=== PATIENT | female | born 1935 | race African-American/Black ===

== ENCOUNTER 2021-04-26 09:19 | Inpatient (IN) | payer MEDICARE, MEDICAID ==
[~2021-04-26] VITALS: Ht 170.2 cm; Wt 100.9 kg
[~2021-04-26 09:19] MED LIST: UNK HTN MEDS
[2021-04-26 11:25] LABS: BASOPHILS % 1.2 % (0.0-2.0); EOSINOPHILS % 1.8 % (0.0-5.0); HEMATOCRIT. 41.3 % (36.0-48.0); HEMOGLOBIN. 13.7 g/dL (12.0-16.0); LYMPHOCYTES % 23.6 % (20.0-50.0); MEAN CORPUSCULAR VOLUME 96.2 fL (81.0-99.0); MEAN PLATELET VOLUME 10.5 fl (7.4-10.4); MONOCYTES % 11.5 % (2.0-8.0); NEUTROPHILS % 61.9 % (40.0-76.0); PLATELET 128 x1000/uL (130-400); RED BLOOD CELL COUNT 4.29 mill/uL (4.2-5.4); RED CELL DISTRIBUTION WIDTH 13.8 % (11.6-14.6)
[2021-04-26 11:27] LABS: CHLORIDE 106 mEq/L (98-107)
[2021-04-26 17:00] VITALS: BP 147/89
[2021-04-26 18:17] VITALS: BP 142/70
[2021-04-26] MEDS ORDERED: ACETAMINOPHEN 325MG TABLET PO PRN (19:30)
[2021-04-26] MEDS ORDERED: CLONIDINE 0.1MG TABLET PO PRN (19:30)
[2021-04-26] MEDS ORDERED: MORPHINE SULFATE 2 MG/ML CPJ (NOT FOR IM USE) IV PRN (19:30)
[2021-04-26] MEDS ORDERED: NALOXONE HCL 0.4MG/ML VIAL IV PRN (19:45)
[2021-04-26 20:00] VITALS: BP 157/81
[2021-04-26] MEDS: ATORVASTATIN CALCIUM 40MG TABLET PO SCH (21:26)
[2021-04-26] MEDS: METOPROLOL TARTRATE 50MG TABLET PO SCH (21:27)
[2021-04-27] VITALS: BP 130/70
[2021-04-27 04:00] VITALS: BP 133/69
[2021-04-27 05:21] LABS: INR 1.2; PROTHROMBIN TIME 12.4 sec (9.6-11.0)
[2021-04-27 05:27] LABS: CHLORIDE 105 mEq/L (98-107)
[2021-04-27 06:11] LABS: EOSINOPHILS % 3.6 % (0.0-5.0); HEMATOCRIT. 41.7 % (36.0-48.0); HEMOGLOBIN. 13.8 g/dL (12.0-16.0); LYMPHOCYTES % 25.2 % (20.0-50.0); MEAN CORPUSCULAR HEMOGLOBIN 32.5 pg (28.0-32.0); MEAN PLATELET VOLUME 11.1 fl (7.4-10.4); NEUTROPHILS % 57.2 % (40.0-76.0); PLATELET 118 x1000/uL (130-400); RED BLOOD CELL COUNT 4.26 mill/uL (4.2-5.4); RED CELL DISTRIBUTION WIDTH 13.5 % (11.6-14.6)
[2021-04-27 08:00] VITALS: BP 138/78
[2021-04-27] MEDS: METOPROLOL TARTRATE 50MG TABLET PO SCH ×2 (09:12→20:44)
[2021-04-27] MEDS: ASPIRIN 81MG TABLET PO SCH (09:13)
[2021-04-27] MEDS: ENOXAPARIN 30MG/0.3ML SYR SUBCUT SCH ×2 (11:51→20:45)
[2021-04-27 12:00] VITALS: BP 150/85
[2021-04-27 12:27] LABS: HEPATITIS B SURFACE ANTIGEN NEGATIVE
[2021-04-27] MEDS ORDERED: LACTULOSE 20G/30ML UDC PO SCH (14:00)
[2021-04-27 16:00] VITALS: BP_SYST 132; BP_SYST 154; BP_DIAS 68; BP_DIAS 81
[2021-04-27 20:00] VITALS: BP 152/81
[2021-04-27] MEDS: ATORVASTATIN CALCIUM 40MG TABLET PO SCH (20:44)
[2021-04-28] VITALS: BP 146/60
[2021-04-28 04:00] VITALS: BP 148/67
[2021-04-28 07:08] LABS: BASOPHILS % 1.1 % (0.0-2.0); EOSINOPHILS % 4.3 % (0.0-5.0); HEMATOCRIT. 40.2 % (36.0-48.0); HEMOGLOBIN. 13.3 g/dL (12.0-16.0); MEAN CORPUSCULAR HEMOGLOBIN 32.3 pg (28.0-32.0); MEAN CORPUSCULAR VOLUME 97.1 fL (81.0-99.0); MEAN PLATELET VOLUME 10.7 fl (7.4-10.4); MONOCYTES % 13.3 % (2.0-8.0); NEUTROPHILS % 53.3 % (40.0-76.0); PLATELET 129 x1000/uL (130-400); RED BLOOD CELL COUNT 4.13 mill/uL (4.2-5.4); RED CELL DISTRIBUTION WIDTH 13.9 % (11.6-14.6)
[2021-04-28 07:15] LABS: CHLORIDE 106 mEq/L (98-107)
[2021-04-28 09:00] VITALS: BP 142/73
[2021-04-28] MEDS: ENOXAPARIN 30MG/0.3ML SYR SUBCUT SCH ×2 (09:45→22:13)
[2021-04-28] MEDS ORDERED: POTASSIUM CHLORIDE 20MEQ/PACKET PO NR (10:15)
[2021-04-28] MEDS ORDERED: MELO-106 PO (11:07)
[2021-04-28] MEDS ORDERED: OMEP20CA14 PO (11:07)
[2021-04-28] MEDS ORDERED: MEMA5TAB42 PO (11:07)
[2021-04-28] MEDS ORDERED: ATOR-2 MT (11:07)
[2021-04-28] MEDS ORDERED: NIFE-33 PO (11:07)
[2021-04-28] MEDS ORDERED: POTA-79 PO (11:07)
[2021-04-28] MEDS ORDERED: HYDR25TA PO (11:07)
[2021-04-28 12:00] VITALS: BP 140/72
[2021-04-28] MEDS: METOPROLOL TARTRATE 50MG TABLET PO SCH ×2 (12:34→21:57)
[2021-04-28] MEDS: ASPIRIN 81MG TABLET PO SCH (12:34)
[2021-04-28 16:00] VITALS: BP 143/67
[2021-04-28 19:09] LABS: CLARITY URINE CLEAR (CLEAR); COLOR URINE DARK YELLOW (YELLOW); KETONES URINE NEGATIVE (NEGATIVE); LEUKOCYTE ESTERASE URINE 1+ (NEGATIVE); NITRITE URINE NEGATIVE (NEGATIVE); OCCULT BLOOD URINE NEGATIVE (NEGATIVE); PH URINE 5.5 (4.5-8.0); PROTEIN URINE TRACE (NEGATIVE); SPECIFIC GRAVITY URINE 1.024 (1.005-1.030)
[2021-04-28 20:00] VITALS: BP 135/63
[2021-04-28] MEDS: ATORVASTATIN CALCIUM 40MG TABLET PO SCH (21:57)
[2021-04-29] VITALS (17 sets, daily range): BP systolic 112–198; BP diastolic 58–113
[2021-04-29] MEDS: DEXT 5%/0.45% NACL 1000ML 1,000 ML IV SCH ×2 (06:16→21:49)
[2021-04-29 07:40] LABS: EOSINOPHILS % 4.6 % (0.0-5.0); HEMATOCRIT. 40.5 % (36.0-48.0); HEMOGLOBIN. 13.5 g/dL (12.0-16.0); LYMPHOCYTES % 29.2 % (20.0-50.0); MEAN CORPUSCULAR HEMOGLOBIN 32.7 pg (28.0-32.0); MEAN CORPUSCULAR VOLUME 97.8 fL (81.0-99.0); MONOCYTES % 14.5 % (2.0-8.0); NEUTROPHILS % 50.7 % (40.0-76.0); PLATELET 122 x1000/uL (130-400); RED BLOOD CELL COUNT 4.14 mill/uL (4.2-5.4); RED CELL DISTRIBUTION WIDTH 14.2 % (11.6-14.6)
[2021-04-29] MEDS: METOPROLOL TARTRATE 50MG TABLET PO SCH ×2 (09:21→21:00)
[2021-04-29] MEDS: ASPIRIN 81MG TABLET PO SCH (09:21)
[2021-04-29] MEDS: PIPERACILLIN/TAZOBACTAM 3.375G in DEXT 5% WATER 50ML IV SCH ×2 (09:21→13:57)
[2021-04-29] MEDS ORDERED: LIDOCAINE HCL 1% 20ML VIAL (Pyxis) INJ ONE (14:47)
[2021-04-29] MEDS ORDERED: POLYMYXIN B SULFATE 500000 UNITS/VIAL ONE (14:48)
[2021-04-29] MEDS ORDERED: BUPIVACAINE HCL/PF 0.5% (5MG/ML) 10ML ONE (14:48)
[2021-04-29] MEDS ORDERED: SKIN ADHESIVE 0.7 GM EA TOP ONE (14:48)
[2021-04-29] MEDS ORDERED: ROCURONIUM BROMIDE 10MG/ML VIAL 5ML IV ONE (18:17)
[2021-04-29] MEDS ORDERED: FENTANYL CITRATE/PF 50MCG/ML 2ML VIAL ONE (18:17)
[2021-04-29] MEDS ORDERED: NEOSTIGMINE METHYLSULFATE 1MG/ML 10 ML VIAL ONE (18:17)
[2021-04-29] MEDS ORDERED: GLYCOPYRROLATE 0.2 MG/ML 2ML VIAL ONE (18:18)
[2021-04-29] MEDS ORDERED: MIDAZOLAM HCL 2 MG/2 ML VIAL ONE ×2 (18:18→21:04)
[2021-04-29] MEDS ORDERED: PROPOFOL 200MG/20ML VIAL IV ONE (18:18)
[2021-04-29] MEDS ORDERED: HYDROMORPHONE HCL/PF 2MG/ML CPJ IV PRN (18:30)
[2021-04-29] MEDS ORDERED: ONDANSETRON HCL 4MG/2ML INJ IV PRN (18:30)
[2021-04-29] MEDS ORDERED: LABETALOL 5MG/ML SYR 20 MG/4 ML SYRINGE IV PRN (18:30)
[2021-04-29] MEDS ORDERED: MEPERIDINE HCL/PF 25MG/ML CPJ IV PRN (18:30)
[2021-04-29] MEDS ORDERED: DEXAMETHASONE 4MG/ML 1ML VIAL ONE (18:39)
[2021-04-29] MEDS ORDERED: HYDROMORPHONE HCL/PF 2MG/ML (OR) ONE (19:46)
[2021-04-29] MEDS: ATORVASTATIN CALCIUM 40MG TABLET PO SCH (21:00)
[2021-04-29] MEDS ORDERED: MIDAZOLAM 100MG/100ML PMX 100 ML IV PRN (21:30)
[2021-04-29] MEDS ORDERED: PROPOFOL 10MG/ML 100ML 100 ML IV PRN (21:30)
[2021-04-29] MEDS ORDERED: FENTANYL CITRATE/PF 2,500 MCG in SODIUM CHLORIDE 0.9% 200 ML IV PRN (21:30)
[2021-04-29] MEDS: PROPOFOL 10MG/ML 100ML 100 ML IV PRN (21:48)
[2021-04-29] MEDS ORDERED: MIDAZOLAM HCL 100 MG in SODIUM CHLORIDE 0.9% 100 ML IV PRN (22:00)
[2021-04-29 22:01] LABS: BG BASE EXCESS 0.8 mmol/L (-2.0-2.0); BG CARBOXYHEMOGLOBIN 0.1 % (0.5-1.5); BG DEOXYHEMOGLOBIN 0.2 % (0.0-5.0); BG FRACTION INSPIRED OXYGEN 100; BG HCO3 ACT 23.8 mmol/L (22.0-26.0); BG METHEMOGLOBIN 0.3 % (0.0-1.5); BG OXYGEN SATURATION 99.8 % (92.0-98.5); BG OXYHEMOGLOBIN 99.4 % (94.0-97.0); BG PCO2 33.3 mmHg (35.0-45.0); BG PH 7.472 (7.350-7.450); BG PO2 376.6 mmHg (75.0-100.0); BG SAMPLE SITE LEFT RADIAL; BG TOTAL HEMOGLOBIN 13.9 g/dL (12.0-18.0); BG VENT MODE VENT - AC
[2021-04-29 23:11] LABS: HEMATOCRIT 41.4 % (36.0-48.0); HEMOGLOBIN 13.8 g/dL (12.0-16.0)
[2021-04-30] VITALS (70 sets, daily range): BP systolic 103–181; BP diastolic 55–126
[2021-04-30] MEDS: LACTULOSE 20G/30ML UDC PO SCH ×5 (01:11→22:18)
[2021-04-30] MEDS: PIPERACILLIN/TAZOBACTAM 3.375G in DEXT 5% WATER 50ML IV SCH ×4 (01:12→22:16)
[2021-04-30] MEDS: ATORVASTATIN CALCIUM 40MG TABLET PO SCH ×2 (01:13→21:10)
[2021-04-30] MEDS: METOPROLOL TARTRATE 50MG TABLET PO SCH ×3 (01:13→21:10)
[2021-04-30] MEDS: PROPOFOL 10MG/ML 100ML 100 ML IV PRN (03:03)
[2021-04-30 06:10] LABS: CHLORIDE 107 mEq/L (98-107)
[2021-04-30 06:16] LABS: BASOPHILS % 0.2 % (0.0-2.0); EOSINOPHILS % 0.1 % (0.0-5.0); HEMATOCRIT. 39.3 % (36.0-48.0); HEMOGLOBIN. 13.3 g/dL (12.0-16.0); LYMPHOCYTES % 9.6 % (20.0-50.0); MEAN CORPUSCULAR HEMOGLOBIN 32.5 pg (28.0-32.0); MEAN CORPUSCULAR VOLUME 96.1 fL (81.0-99.0); MEAN PLATELET VOLUME 10.3 fl (7.4-10.4); MONOCYTES % 5.8 % (2.0-8.0); NEUTROPHILS % 84.3 % (40.0-76.0); PLATELET 149 x1000/uL (130-400); RED BLOOD CELL COUNT 4.09 mill/uL (4.2-5.4); RED CELL DISTRIBUTION WIDTH 13.8 % (11.6-14.6)
[2021-04-30] MEDS: ASPIRIN 81MG TABLET PO SCH (08:53)
[2021-04-30] MEDS: DEXT 5%/0.45% NACL 1000ML 1,000 ML IV SCH ×2 (08:54→22:20)
[2021-04-30 15:23] LABS: BG BASE EXCESS 0.2 mmol/L (-2.0-2.0); BG CARBOXYHEMOGLOBIN 0.1 % (0.5-1.5); BG FRACTION INSPIRED OXYGEN 40; BG HCO3 ACT 23.5 mmol/L (22.0-26.0); BG METHEMOGLOBIN 0.1 % (0.0-1.5); BG OXYHEMOGLOBIN 97.8 % (94.0-97.0); BG PCO2 33.9 mmHg (35.0-45.0); BG PH 7.458 (7.350-7.450); BG PO2 110.1 mmHg (75.0-100.0); BG SAMPLE SITE RIGHT RADIAL; BG TOTAL HEMOGLOBIN 14.3 g/dL (12.0-18.0); BG TOTAL RESPIRATORY RATE 23 b/min; BG VENT MODE VENT - CPAP
[2021-04-30] MEDS ORDERED: DEXTROSE 50% WATER 50ML SYRINGE IV PRN ×2 (17:00)
[2021-04-30] MEDS: BLOOD SUGAR DIAGNOSTIC STRIP TEST SCH ×2 (17:19→21:11)
[2021-04-30] MEDS: INSULIN LISPRO 100 UNITS/ML SUBCUT SCH ×2 (18:56→21:10)
[2021-04-30] MEDS: RIFAXIMIN 550 MG TABLET PO SCH (21:10)
[2021-05-01] VITALS (30 sets, daily range): BP systolic 114–163; BP diastolic 51–91
[2021-05-01] MEDS: MORPHINE SULFATE 2 MG/ML CPJ (NOT FOR IM USE) IV PRN (00:38)
[2021-05-01] MEDS: PIPERACILLIN/TAZOBACTAM 3.375G in DEXT 5% WATER 50ML IV SCH ×3 (06:11→22:59)
[2021-05-01 06:18] LABS: BASOPHILS % 0.3 % (0.0-2.0); HEMATOCRIT. 41.1 % (36.0-48.0); HEMOGLOBIN. 13.3 g/dL (12.0-16.0); LYMPHOCYTES % 10.6 % (20.0-50.0); MEAN CORPUSCULAR HEMOGLOBIN 31.6 pg (28.0-32.0); MEAN CORPUSCULAR VOLUME 97.6 fL (81.0-99.0); MEAN PLATELET VOLUME 10.3 fl (7.4-10.4); NEUTROPHILS % 77.1 % (40.0-76.0); PLATELET 194 x1000/uL (130-400); RED CELL DISTRIBUTION WIDTH 14.4 % (11.6-14.6)
[2021-05-01 06:23] LABS: CHLORIDE 106 mEq/L (98-107)
[2021-05-01] MEDS: BLOOD SUGAR DIAGNOSTIC STRIP TEST SCH ×4 (08:09→21:46)
[2021-05-01] MEDS: RIFAXIMIN 550 MG TABLET PO SCH ×2 (08:52→21:00)
[2021-05-01] MEDS: ASPIRIN 81MG TABLET PO SCH (09:11)
[2021-05-01] MEDS: METOPROLOL TARTRATE 50MG TABLET PO SCH ×2 (09:11→21:00)
[2021-05-01] MEDS: INSULIN LISPRO 100 UNITS/ML SUBCUT SCH ×4 (09:23→21:54)
[2021-05-01] MEDS ORDERED: MORPHINE SULFATE 4 MG/ML CPJ (NOT FOR IM USE) IV PRN (09:45)
[2021-05-01] MEDS: PANTOPRAZOLE SODIUM 40 MG/VIAL IV SCH (09:45)
[2021-05-01] MEDS: DEXT 5%/0.45% NACL 1000ML 1,000 ML IV SCH (11:26)
[2021-05-01] MEDS: METOCLOPRAMIDE HCL 10MG/2ML VIAL IV SCH ×2 (12:24→17:59)
[2021-05-01] MEDS: LACTULOSE 20G/30ML UDC PO SCH ×2 (12:54→21:57)
[2021-05-01] MEDS: ATORVASTATIN CALCIUM 40MG TABLET PO SCH (21:00)
[2021-05-01] MEDS ORDERED: INSULIN GLARGINE UD 100 UNITS/ML SYR SUBCUT SCH (22:00)
[2021-05-02] VITALS (10 sets, daily range): BP systolic 126–163; BP diastolic 38–78
[2021-05-02] MEDS: DEXT 5%/0.45% NACL 1000ML 1,000 ML IV SCH ×2 (00:42→14:00)
[2021-05-02] MEDS: METOCLOPRAMIDE HCL 10MG/2ML VIAL IV SCH ×5 (00:42→23:43)
[2021-05-02] MEDS: PIPERACILLIN/TAZOBACTAM 3.375G in DEXT 5% WATER 50ML IV SCH ×3 (05:23→21:19)
[2021-05-02] MEDS: LACTULOSE 20G/30ML UDC PO SCH ×3 (06:00→22:00)
[2021-05-02] MEDS: ONDANSETRON HCL 4MG/2ML INJ IV PRN ×2 (07:24→08:44)
[2021-05-02] MEDS: HYDRALAZINE 20MG/ML VIAL IV PRN ×2 (07:24→21:54)
[2021-05-02] MEDS: BLOOD SUGAR DIAGNOSTIC STRIP TEST SCH ×4 (07:30→21:00)
[2021-05-02] MEDS: INSULIN LISPRO 100 UNITS/ML SUBCUT SCH ×4 (08:00→21:19)
[2021-05-02] MEDS: ASPIRIN 81MG TABLET PO SCH (09:00)
[2021-05-02] MEDS: METOPROLOL TARTRATE 50MG TABLET PO SCH ×2 (09:00→21:00)
[2021-05-02] MEDS: PANTOPRAZOLE SODIUM 40 MG/VIAL IV SCH (09:26)
[2021-05-02] MEDS: RIFAXIMIN 550 MG TABLET PO SCH ×2 (09:27→21:00)
[2021-05-02 09:32] LABS: CHLORIDE 103 mEq/L (98-107)
[2021-05-02 09:35] LABS: BASOPHILS % 0.3 % (0.0-2.0); EOSINOPHILS % 0.3 % (0.0-5.0); HEMATOCRIT. 36.3 % (36.0-48.0); HEMOGLOBIN. 12.3 g/dL (12.0-16.0); LYMPHOCYTES % 10.5 % (20.0-50.0); MEAN CORPUSCULAR VOLUME 96.9 fL (81.0-99.0); MEAN PLATELET VOLUME 10.2 fl (7.4-10.4); MONOCYTES % 11.6 % (2.0-8.0); NEUTROPHILS % 77.3 % (40.0-76.0); PLATELET 173 x1000/uL (130-400); RED BLOOD CELL COUNT 3.74 mill/uL (4.2-5.4); RED CELL DISTRIBUTION WIDTH 14.4 % (11.6-14.6)
[2021-05-02 09:42] LABS: PHOSPHORUS 1.8 mg/dL (2.5-4.9)
[2021-05-02] MEDS: BISACODYL 10MG SUPP PR SCH (14:30)
[2021-05-02] MEDS ORDERED: MORPHINE SULFATE 2 MG/ML CPJ (NOT FOR IM USE) IV PRN (15:32)
[2021-05-02] MEDS: ATORVASTATIN CALCIUM 40MG TABLET PO SCH (21:00)
[2021-05-02] MEDS: INSULIN GLARGINE UD 100 UNITS/ML SYR SUBCUT SCH (21:53)
[2021-05-02] MEDS: MORPHINE SULFATE 2 MG/ML CPJ (NOT FOR IM USE) IV PRN (22:24)
[2021-05-03] VITALS (12 sets, daily range): BP systolic 115–155; BP diastolic 62–88
[2021-05-03] MEDS: DEXT 5%/0.45% NACL 1000ML 1,000 ML IV SCH ×2 (02:07→16:56)
[2021-05-03] MEDS: PIPERACILLIN/TAZOBACTAM 3.375G in DEXT 5% WATER 50ML IV SCH ×3 (05:13→21:44)
[2021-05-03] MEDS: METOCLOPRAMIDE HCL 10MG/2ML VIAL IV SCH ×4 (05:13→23:42)
[2021-05-03] MEDS: LACTULOSE 20G/30ML UDC PO SCH ×3 (06:00→21:45)
[2021-05-03 07:18] LABS: BASOPHILS % 0.4 % (0.0-2.0); EOSINOPHILS % 1.6 % (0.0-5.0); HEMATOCRIT. 34.4 % (36.0-48.0); HEMOGLOBIN. 11.5 g/dL (12.0-16.0); LYMPHOCYTES % 13.9 % (20.0-50.0); MEAN CORPUSCULAR HEMOGLOBIN 32.3 pg (28.0-32.0); MEAN CORPUSCULAR VOLUME 96.3 fL (81.0-99.0); MEAN PLATELET VOLUME 9.6 fl (7.4-10.4); MONOCYTES % 10.8 % (2.0-8.0); NEUTROPHILS % 73.3 % (40.0-76.0); PLATELET 190 x1000/uL (130-400); RED BLOOD CELL COUNT 3.57 mill/uL (4.2-5.4); RED CELL DISTRIBUTION WIDTH 13.8 % (11.6-14.6)
[2021-05-03] MEDS: BLOOD SUGAR DIAGNOSTIC STRIP TEST SCH ×4 (07:30→20:00)
[2021-05-03 08:06] LABS: CHLORIDE 106 mEq/L (98-107)
[2021-05-03] MEDS: RIFAXIMIN 550 MG TABLET PO SCH ×2 (08:46→08:57)
[2021-05-03] MEDS: BISACODYL 10MG SUPP PR SCH (08:46)
[2021-05-03] MEDS: PANTOPRAZOLE SODIUM 40 MG/VIAL IV SCH (08:46)
[2021-05-03] MEDS: ASPIRIN 81MG TABLET PO SCH ×2 (08:46→08:57)
[2021-05-03] MEDS: INSULIN LISPRO 100 UNITS/ML SUBCUT SCH ×4 (08:47→21:46)
[2021-05-03] MEDS: METOPROLOL TARTRATE 50MG TABLET PO SCH ×2 (08:47→08:58)
[2021-05-03] MEDS: ATORVASTATIN CALCIUM 40MG TABLET PO SCH (21:44)
[2021-05-03] MEDS: INSULIN GLARGINE UD 100 UNITS/ML SYR SUBCUT SCH (21:46)
[2021-05-03] MEDS ORDERED: NALOXONE HCL 0.4MG/ML VIAL IV PRN (22:30)
[2021-05-04] VITALS (11 sets, daily range): BP systolic 117–154; BP diastolic 59–91
[2021-05-04] MEDS: LACTULOSE 20G/30ML UDC PO SCH ×3 (05:21→21:24)
[2021-05-04] MEDS: METOCLOPRAMIDE HCL 10MG/2ML VIAL IV SCH ×4 (05:21→23:31)
[2021-05-04] MEDS: DEXT 5%/0.45% NACL 1000ML 1,000 ML IV SCH (05:21)
[2021-05-04 06:30] LABS: CHLORIDE 106 mEq/L (98-107)
[2021-05-04 06:37] LABS: BASOPHILS % 0.5 % (0.0-2.0); EOSINOPHILS % 6.2 % (0.0-5.0); HEMATOCRIT. 34.7 % (36.0-48.0); HEMOGLOBIN. 11.7 g/dL (12.0-16.0); LYMPHOCYTES % 16.5 % (20.0-50.0); MEAN CORPUSCULAR HEMOGLOBIN 32.8 pg (28.0-32.0); MEAN CORPUSCULAR VOLUME 97.4 fL (81.0-99.0); MEAN PLATELET VOLUME 9.6 fl (7.4-10.4); MONOCYTES % 12.3 % (2.0-8.0); NEUTROPHILS % 64.5 % (40.0-76.0); PLATELET 207 x1000/uL (130-400); RED BLOOD CELL COUNT 3.56 mill/uL (4.2-5.4); RED CELL DISTRIBUTION WIDTH 13.8 % (11.6-14.6)
[2021-05-04] MEDS: BLOOD SUGAR DIAGNOSTIC STRIP TEST SCH ×4 (07:30→21:06)
[2021-05-04] MEDS: BISACODYL 10MG SUPP PR SCH (08:52)
[2021-05-04] MEDS: PANTOPRAZOLE SODIUM 40 MG/VIAL IV SCH (08:52)
[2021-05-04] MEDS: ASPIRIN 81MG TABLET PO SCH (08:52)
[2021-05-04] MEDS: RIFAXIMIN 550 MG TABLET PO SCH ×2 (08:52→21:24)
[2021-05-04] MEDS: INSULIN LISPRO 100 UNITS/ML SUBCUT SCH ×4 (08:53→21:00)
[2021-05-04] MEDS: METOPROLOL TARTRATE 50MG TABLET PO SCH ×2 (08:53→21:24)
[2021-05-04] MEDS ORDERED: POTASSIUM CHLORIDE 20MEQ/PACKET PO NR (10:30)
[2021-05-04] MEDS: ENOXAPARIN 30MG/0.3ML SYR SUBCUT SCH ×2 (11:24→21:24)
[2021-05-04] MEDS: ATORVASTATIN CALCIUM 40MG TABLET PO SCH (21:23)
[2021-05-04] MEDS: INSULIN GLARGINE UD 100 UNITS/ML SYR SUBCUT SCH (21:25)
[2021-05-05] VITALS: BP 124/79
[2021-05-05 04:00] VITALS: BP 160/75
[2021-05-05] MEDS: HYDRALAZINE 20MG/ML VIAL IV PRN (04:49)
[2021-05-05] MEDS: METOCLOPRAMIDE HCL 10MG/2ML VIAL IV SCH ×3 (05:00→18:17)
[2021-05-05] MEDS: LACTULOSE 20G/30ML UDC PO SCH ×3 (05:00→22:48)
[2021-05-05] MEDS: BLOOD SUGAR DIAGNOSTIC STRIP TEST SCH ×4 (07:30→21:30)
[2021-05-05 08:00] VITALS: BP 122/65
[2021-05-05] MEDS: INSULIN LISPRO 100 UNITS/ML SUBCUT SCH ×3 (08:00→21:00)
[2021-05-05 08:15] LABS: BASOPHILS % 0.7 % (0.0-2.0); EOSINOPHILS % 3.6 % (0.0-5.0); HEMATOCRIT. 36.3 % (36.0-48.0); HEMOGLOBIN. 12.3 g/dL (12.0-16.0); LYMPHOCYTES % 20.7 % (20.0-50.0); MEAN CORPUSCULAR HEMOGLOBIN 32.7 pg (28.0-32.0); MEAN CORPUSCULAR VOLUME 96.4 fL (81.0-99.0); MEAN PLATELET VOLUME 9.1 fl (7.4-10.4); MONOCYTES % 12.4 % (2.0-8.0); NEUTROPHILS % 62.6 % (40.0-76.0); PLATELET 242 x1000/uL (130-400); RED BLOOD CELL COUNT 3.76 mill/uL (4.2-5.4)
[2021-05-05 08:27] LABS: CHLORIDE 108 mEq/L (98-107)
[2021-05-05] MEDS: BISACODYL 10MG SUPP PR SCH (09:00)
[2021-05-05] MEDS: RIFAXIMIN 550 MG TABLET PO SCH ×2 (09:48→21:29)
[2021-05-05] MEDS: PANTOPRAZOLE SODIUM 40 MG/VIAL IV SCH (09:48)
[2021-05-05] MEDS: ASPIRIN 81MG TABLET PO SCH (09:48)
[2021-05-05] MEDS: METOPROLOL TARTRATE 50MG TABLET PO SCH ×2 (09:48→21:30)
[2021-05-05 12:00] VITALS: BP 132/72
[2021-05-05] MEDS: ENOXAPARIN 30MG/0.3ML SYR SUBCUT SCH ×2 (12:57→21:29)
[2021-05-05 16:00] VITALS: BP 128/65
[2021-05-05 20:00] VITALS: BP 135/74
[2021-05-05] MEDS: ATORVASTATIN CALCIUM 40MG TABLET PO SCH (21:30)
[2021-05-05] MEDS: INSULIN GLARGINE UD 100 UNITS/ML SYR SUBCUT SCH (22:50)
[2021-05-06] VITALS: BP 115/75
[2021-05-06 04:00] VITALS: BP 114/64
[2021-05-06] MEDS: LACTULOSE 20G/30ML UDC PO SCH ×3 (06:00→21:24)
[2021-05-06] MEDS: METOCLOPRAMIDE HCL 10MG/2ML VIAL IV SCH ×5 (06:00→23:20)
[2021-05-06] MEDS: BLOOD SUGAR DIAGNOSTIC STRIP TEST SCH ×3 (07:30→20:46)
[2021-05-06] MEDS: INSULIN LISPRO 100 UNITS/ML SUBCUT SCH ×4 (08:00→20:46)
[2021-05-06 08:02] VITALS: BP 161/99
[2021-05-06] MEDS: PANTOPRAZOLE SODIUM 40 MG/VIAL IV SCH (09:22)
[2021-05-06] MEDS: ASPIRIN 81MG TABLET PO SCH (09:22)
[2021-05-06] MEDS: METOPROLOL TARTRATE 50MG TABLET PO SCH ×2 (09:22→21:24)
[2021-05-06] MEDS: ENOXAPARIN 30MG/0.3ML SYR SUBCUT SCH ×2 (09:22→21:25)
[2021-05-06] MEDS: BISACODYL 10MG SUPP PR SCH (09:23)
[2021-05-06 12:00] VITALS: BP 123/55
[2021-05-06 16:00] VITALS: BP 142/57
[2021-05-06] MEDS ORDERED: HYDRALAZINE 10 MG in SODIUM CHLORIDE 0.9% 49.5 ML IV PRN (17:30)
[2021-05-06 20:00] VITALS: BP 140/74
[2021-05-06] MEDS: ATORVASTATIN CALCIUM 40MG TABLET PO SCH (21:24)
[2021-05-06] MEDS: INSULIN GLARGINE UD 100 UNITS/ML SYR SUBCUT SCH (23:21)
[2021-05-07] VITALS: BP 128/73
[2021-05-07 04:00] VITALS: BP 125/59
[2021-05-07] MEDS: METOCLOPRAMIDE HCL 10MG/2ML VIAL IV SCH ×4 (05:19→23:31)
[2021-05-07] MEDS: LACTULOSE 20G/30ML UDC PO SCH ×3 (05:19→21:48)
[2021-05-07] MEDS: BLOOD SUGAR DIAGNOSTIC STRIP TEST SCH ×4 (06:22→21:00)
[2021-05-07] MEDS: BISACODYL 10MG SUPP PR SCH (09:00)
[2021-05-07] MEDS: ASPIRIN 81MG TABLET PO SCH ×2 (09:00→09:44)
[2021-05-07] MEDS: METOPROLOL TARTRATE 50MG TABLET PO SCH ×3 (09:00→21:47)
[2021-05-07] MEDS: PANTOPRAZOLE SODIUM 40 MG/VIAL IV SCH ×2 (09:00→09:45)
[2021-05-07] MEDS: ENOXAPARIN 30MG/0.3ML SYR SUBCUT SCH ×2 (09:00→09:46)
[2021-05-07 16:00] VITALS: BP 131/73
[2021-05-07 20:00] VITALS: BP 123/77
[2021-05-07] MEDS: INSULIN LISPRO 100 UNITS/ML SUBCUT SCH (21:00)
[2021-05-07] MEDS: ATORVASTATIN CALCIUM 40MG TABLET PO SCH (21:47)
[2021-05-07] MEDS: INSULIN GLARGINE UD 100 UNITS/ML SYR SUBCUT SCH (22:00)
[2021-05-08 04:00] VITALS: BP 146/67
[2021-05-08] MEDS: METOCLOPRAMIDE HCL 10MG/2ML VIAL IV SCH ×2 (05:22→12:57)
[2021-05-08] MEDS: LACTULOSE 20G/30ML UDC PO SCH (05:22)
[2021-05-08] MEDS: BLOOD SUGAR DIAGNOSTIC STRIP TEST SCH (06:55)
[2021-05-08] MEDS: INSULIN LISPRO 100 UNITS/ML SUBCUT SCH (07:50)
[2021-05-08 08:00] VITALS: BP 122/77
[2021-05-08] MEDS: BISACODYL 10MG SUPP PR SCH (09:00)
[2021-05-08] MEDS: ASPIRIN 81MG TABLET PO SCH (10:27)
[2021-05-08] MEDS: PANTOPRAZOLE SODIUM 40 MG/VIAL IV SCH (10:27)
[2021-05-08] MEDS: METOPROLOL TARTRATE 50MG TABLET PO SCH (10:28)
[2021-05-08] MEDS: ENOXAPARIN 30MG/0.3ML SYR SUBCUT SCH (10:49)
[2021-05-08 12:00] VITALS: BP 125/65
[2021-05-08 13:02] VITALS: BP 125/65
== END 2021-05-08 15:12 | disposition home health service (06) | DRG 414 ==
LOC: ER 09:19 → MICUSO 14:10 → 7EST 15:31 → CVICU 04-29 21:40 → 5EST 05-01 14:09 → 6EST 05-06 17:22
PROVIDERS: ADMIT Internal Medicine; ATTEND Internal Medicine
PROC: 0FB40ZZ Excision of Gallbladder, Open Approach (ICD-10-PCS; principal; 2021-04-29)
PROC: 0FJ44ZZ Inspection of Gallbladder, Percutaneous Endoscopic Approach (ICD-10-PCS; 2021-04-29)
PROC: 0DNU4ZZ Release Omentum, Percutaneous Endoscopic Approach (ICD-10-PCS; 2021-04-29)
PROC: 0DNW4ZZ Release Peritoneum, Percutaneous Endoscopic Approach (ICD-10-PCS; 2021-04-29)
DX: K80.13 Calculus of gallbladder with acute and chronic cholecystitis with obstruction (principal); J96.01 Acute respiratory failure with hypoxia; G93.41 Metabolic encephalopathy; E44.0 Moderate protein-calorie malnutrition; K56.7 Ileus, unspecified; E78.00 Pure hypercholesterolemia, unspecified; I10 Essential (primary) hypertension; K74.60 Unspecified cirrhosis of liver; K82.8 Other specified diseases of gallbladder; E80.6 Other disorders of bilirubin metabolism; B19.20 Unspecified viral hepatitis C without hepatic coma; R07.89 Other chest pain; R73.9 Hyperglycemia, unspecified; E78.5 Hyperlipidemia, unspecified; Z20.822 Contact with and (suspected) exposure to COVID-19; E87.6 Hypokalemia; K66.0 Peritoneal adhesions (postprocedural) (postinfection); Y83.8 Other surgical procedures as the cause of abnormal reaction of the patient, or of later complication, without mention of misadventure at the time of the procedure; K76.0 Fatty (change of) liver, not elsewhere classified; Y92.238 Other place in hospital as the place of occurrence of the external cause; E66.01 Morbid (severe) obesity due to excess calories; M19.90 Unspecified osteoarthritis, unspecified site; Z53.31 Laparoscopic surgical procedure converted to open procedure; Z79.899 Other long term (current) drug therapy; Z68.34 Body mass index [BMI] 34.0-34.9, adult; T88.59XA Other complications of anesthesia, initial encounter; E66.9 Obesity, unspecified
CPT/HCPCS: 36415; 36600; 71045; 74018; 74181; 76705; 78227; 80048; 80053; 80076; 81003; 82140; 82248; 82375; 82805; 82962; 83036; 83735; 84100; 84478; 84484; 85014; 85018; 85025; 86705; 86709; 86803; 87340; 87426; 88304; 93005; 93306; 97116; 97162; 97166; 97530; 99285; A9537; C9113; J0360; J1100; J1170; J1650; J1815; J2250; J2270; J2405; J2543; J2704; J2710; J2765; J3010; J3490; J7030; J7050; J7060

== ENCOUNTER 2021-07-20 09:20 | Inpatient (IN) | payer MEDICARE, MEDICAID ==
[~2021-07-20] VITALS: Ht 170.2 cm; Wt 103.0 kg
[~2021-07-20 09:20] MED LIST changes: +ATOR-2 MT; +HYDR25TA PO; +MELO-106 PO; +MEMA5TAB42 PO; +NIFE-33 PO; +OMEP20CA14 PO; +POTA-79 PO; -UNK HTN MEDS
[2021-07-20] MEDS ORDERED: MORPHINE SULFATE 4 MG/ML CPJ (NOT FOR IM USE) IV STA (09:47)
[2021-07-20] MEDS ORDERED: ONDANSETRON HCL 4MG/2ML INJ IV STA (09:47)
[2021-07-20] MEDS ORDERED: SODIUM CHLORIDE 0.9% 1,000 ML IV ONE (10:00)
[2021-07-20 10:41] LABS: BASOPHILS % 0.7 % (0.0-2.0); EOSINOPHILS % 1.4 % (0.0-5.0); HEMATOCRIT. 37.9 % (36.0-48.0); HEMOGLOBIN. 12.7 g/dL (12.0-16.0); LYMPHOCYTES % 30.5 % (20.0-50.0); MEAN CORPUSCULAR HEMOGLOBIN 31.5 pg (28.0-32.0); MEAN CORPUSCULAR VOLUME 93.9 fL (81.0-99.0); MEAN PLATELET VOLUME 9.6 fl (7.4-10.4); MONOCYTES % 10.6 % (2.0-8.0); NEUTROPHILS % 56.8 % (40.0-76.0); PLATELET 158 x1000/uL (130-400); RED BLOOD CELL COUNT 4.03 mill/uL (4.2-5.4); RED CELL DISTRIBUTION WIDTH 17.6 % (11.6-14.6)
[2021-07-20 10:44] LABS: CHLORIDE 109 mEq/L (98-107)
[2021-07-20 10:50] LABS: INR 1.4; PROTHROMBIN TIME 14.6 sec (9.6-11.0)
[2021-07-20] MEDS ORDERED: SODIUM CHLORIDE 0.9% 1000ML BAG (SEPSIS BOLUS) IV SCH (11:45)
[2021-07-20] MEDS ORDERED: PIPERACILLIN/TAZ 3.375G PREMIX 50 ML IV SCH (11:45)
[2021-07-20 14:34] LABS: INR 1.4; PROTHROMBIN TIME 14.7 sec (9.6-11.0)
[2021-07-20] MEDS ORDERED: IOHEXOL-300 100 ML BOTTLE ONE (14:49)
[2021-07-20 17:18] LABS: CLARITY URINE CLOUDY (CLEAR); COLOR URINE DARK YELLOW (YELLOW); KETONES URINE TRACE (NEGATIVE); LEUKOCYTE ESTERASE URINE 3+ (NEGATIVE); NITRITE URINE POSITIVE (NEGATIVE); OCCULT BLOOD URINE 2+ (NEGATIVE); PROTEIN URINE 1+ (NEGATIVE); SPECIFIC GRAVITY URINE 1.028 (1.005-1.030)
[2021-07-20] MEDS: DEXT 5%/0.45% NACL 1000ML 1,000 ML IV SCH (18:30)
[2021-07-20] MEDS ORDERED: ACETAMINOPHEN 650MG SUPP PR PRN (18:30)
[2021-07-20] MEDS ORDERED: ONDANSETRON HCL 4MG/2ML INJ IV PRN (18:30)
[2021-07-20] MEDS: PANTOPRAZOLE SODIUM 40 MG/VIAL IV SCH (18:30)
[2021-07-20] MEDS ORDERED: NALOXONE HCL 0.4MG/ML VIAL IV PRN (18:45)
[2021-07-20] MEDS ORDERED: CEFTRIAXONE 1 G PREMIX 50 ML IV SCH (21:00)
[2021-07-20 21:40] VITALS: BP 95/46
[2021-07-20] MEDS: ENOXAPARIN 30MG/0.3ML SYR SUBCUT SCH (22:56)
[2021-07-20] MEDS: CEFTRIAXONE 1,000 MG in DEXTROSE 5% WATER 50 ML IV SCH (23:16)
[2021-07-21] VITALS: BP 105/52
[2021-07-21 04:00] VITALS: BP 105/50
[2021-07-21 06:37] LABS: BASOPHILS % 1.2 % (0.0-2.0); EOSINOPHILS % 2.2 % (0.0-5.0); HEMATOCRIT. 34.6 % (36.0-48.0); HEMOGLOBIN. 11.8 g/dL (12.0-16.0); LYMPHOCYTES % 24.4 % (20.0-50.0); MEAN CORPUSCULAR HEMOGLOBIN 32.3 pg (28.0-32.0); MEAN CORPUSCULAR VOLUME 94.5 fL (81.0-99.0); MONOCYTES % 14.2 % (2.0-8.0); PLATELET 133 x1000/uL (130-400); RED BLOOD CELL COUNT 3.66 mill/uL (4.2-5.4)
[2021-07-21 06:41] LABS: CHLORIDE 112 mEq/L (98-107)
[2021-07-21] MEDS: DEXT 5%/0.45% NACL 1000ML 1,000 ML IV SCH ×2 (07:50→21:10)
[2021-07-21 08:00] VITALS: BP 114/69
[2021-07-21] MEDS: PANTOPRAZOLE SODIUM 40 MG/VIAL IV SCH ×2 (09:31→19:07)
[2021-07-21] MEDS: ENOXAPARIN 30MG/0.3ML SYR SUBCUT SCH ×2 (09:32→22:06)
[2021-07-21] MEDS: HYDROMORPHONE HCL/PF 2MG/ML CPJ IV PRN ×2 (09:33→22:07)
[2021-07-21] MEDS ORDERED: POTASSIUM CHLORIDE INJ 40 MEQ in DEXT 5% WATER 250 ML IV ONE (10:00)
[2021-07-21 12:00] VITALS: BP 121/63
[2021-07-21] MEDS: KCL 20MEQ/100ML X 2 FOR TOTAL KCL 40MEQ/200ML IV SCH ×2 (13:07→16:22)
[2021-07-21 16:00] VITALS: BP 116/67
[2021-07-21 19:21] LABS: TOTAL IRON BINDING CAPACITY 110 ug/dL (250-450)
[2021-07-21 19:38] LABS: FERRITIN 1248 ng/mL (10-291)
[2021-07-21 19:55] LABS: VITAMIN B12 SERUM > 2000.0 pg/mL (211-911)
[2021-07-21 20:00] VITALS: BP 110/71
[2021-07-22] VITALS: BP 113/51
[2021-07-22] MEDS: CEFTRIAXONE 1,000 MG in DEXTROSE 5% WATER 50 ML IV SCH ×2 (01:52→23:11)
[2021-07-22 04:00] VITALS: BP 122/65
[2021-07-22] MEDS: PANTOPRAZOLE SODIUM 40 MG/VIAL IV SCH ×2 (06:36→17:14)
[2021-07-22] MEDS: ENOXAPARIN 30MG/0.3ML SYR SUBCUT SCH ×2 (09:00→21:12)
[2021-07-22 12:00] VITALS: BP 111/62
[2021-07-22 16:00] VITALS: BP 119/60
[2021-07-22 20:00] VITALS: BP 96/69
[2021-07-22] MEDS: INSULIN LISPRO 100 UNITS/ML SUBCUT SCH (22:30)
[2021-07-22] MEDS: BLOOD SUGAR DIAGNOSTIC STRIP TEST SCH (22:30)
[2021-07-22] MEDS ORDERED: DEXTROSE 50% WATER 50ML SYRINGE IV PRN (22:30)
[2021-07-22] MEDS: DEXT 5%/0.45% NACL 1000ML 1,000 ML IV SCH (23:11)
[2021-07-23] VITALS: BP 115/73
[2021-07-23 04:00] VITALS: BP 103/51
[2021-07-23] MEDS: PANTOPRAZOLE SODIUM 40 MG/VIAL IV SCH ×2 (05:45→17:28)
[2021-07-23] MEDS: BLOOD SUGAR DIAGNOSTIC STRIP TEST SCH ×4 (06:25→21:00)
[2021-07-23] MEDS: INSULIN LISPRO 100 UNITS/ML SUBCUT SCH ×4 (07:50→21:40)
[2021-07-23 08:00] VITALS: BP 112/61
[2021-07-23 08:00] LABS: BASOPHILS % 0.8 % (0.0-2.0); EOSINOPHILS % 2.9 % (0.0-5.0); HEMATOCRIT. 36.2 % (36.0-48.0); HEMOGLOBIN. 11.9 g/dL (12.0-16.0); LYMPHOCYTES % 28.9 % (20.0-50.0); MEAN CORPUSCULAR HEMOGLOBIN 31.2 pg (28.0-32.0); MEAN CORPUSCULAR VOLUME 94.7 fL (81.0-99.0); MEAN PLATELET VOLUME 8.5 fl (7.4-10.4); MONOCYTES % 12.7 % (2.0-8.0); NEUTROPHILS % 54.7 % (40.0-76.0); PLATELET 113 x1000/uL (130-400); RED BLOOD CELL COUNT 3.83 mill/uL (4.2-5.4)
[2021-07-23] MEDS: ENOXAPARIN 30MG/0.3ML SYR SUBCUT SCH ×2 (09:00→21:40)
[2021-07-23 09:17] LABS: CHLORIDE 109 mEq/L (98-107)
[2021-07-23 12:00] VITALS: BP 121/61
[2021-07-23 12:49] LABS: CARCINO EMBRYONIC ANTIGEN 1.2 ng/ml
[2021-07-23 13:00] LABS: HEPATITIS B SURFACE ANTIGEN NEGATIVE
[2021-07-23] MEDS: FOLIC ACID 1MG TABLET PO SCH (13:10)
[2021-07-23] MEDS: DEXT 5%/0.45% NACL 1000ML 1,000 ML IV SCH (13:10)
[2021-07-23] MEDS: GENTAMICIN 100MG PREMIX 50 ML IV SCH (13:10)
[2021-07-23 16:00] VITALS: BP 158/77
[2021-07-23 20:00] VITALS: BP 100/63
[2021-07-24] VITALS: BP 107/86
[2021-07-24] MEDS: DEXT 5%/0.45% NACL 1000ML 1,000 ML IV SCH ×2 (03:20→14:54)
[2021-07-24 04:00] VITALS: BP 115/53
[2021-07-24] MEDS: PANTOPRAZOLE SODIUM 40 MG/VIAL IV SCH (05:15)
[2021-07-24] MEDS: BLOOD SUGAR DIAGNOSTIC STRIP TEST SCH ×3 (06:47→17:30)
[2021-07-24] MEDS: INSULIN LISPRO 100 UNITS/ML SUBCUT SCH ×2 (07:22→12:48)
[2021-07-24 08:00] VITALS: BP 158/68
[2021-07-24] MEDS: ENOXAPARIN 30MG/0.3ML SYR SUBCUT SCH (09:00)
[2021-07-24] MEDS: FOLIC ACID 1MG TABLET PO SCH (09:18)
[2021-07-24] MEDS: GENTAMICIN 100MG PREMIX 50 ML IV SCH (11:07)
[2021-07-24 12:00] VITALS: BP 140/58
[2021-07-24 15:44] VITALS: BP 143/59
[2021-07-24 16:00] VITALS: BP 143/59
== END 2021-07-24 17:41 | disposition home or self-care (01) | DRG 871 ==
LOC: ER 09:20 → ENRESERV 20:46 → 6WST 22:10
PROVIDERS: ADMIT Hospitalist; ATTEND Hospitalist
DX: A41.51 Sepsis due to Escherichia coli [E. coli] (principal); E43 Unspecified severe protein-calorie malnutrition; K76.6 Portal hypertension; N39.0 Urinary tract infection, site not specified; R18.8 Other ascites; M84.48XA Pathological fracture, other site, initial encounter for fracture; Z16.12 Extended spectrum beta lactamase (ESBL) resistance; D64.9 Anemia, unspecified; E11.9 Type 2 diabetes mellitus without complications; E78.00 Pure hypercholesterolemia, unspecified; E87.6 Hypokalemia; R74.01 Elevation of levels of liver transaminase levels; Z20.822 Contact with and (suspected) exposure to COVID-19; M19.90 Unspecified osteoarthritis, unspecified site; R65.20 Severe sepsis without septic shock; I10 Essential (primary) hypertension; F03.90 Unspecified dementia, unspecified severity, without behavioral disturbance, psychotic disturbance, mood disturbance, and anxiety; I25.10 Atherosclerotic heart disease of native coronary artery without angina pectoris; K74.60 Unspecified cirrhosis of liver; Z90.49 Acquired absence of other specified parts of digestive tract; Z90.710 Acquired absence of both cervix and uterus; Z79.899 Other long term (current) drug therapy; Z86.19 Personal history of other infectious and parasitic diseases
CPT/HCPCS: 36415; 71045; 74177; 74181; 80053; 81003; 82105; 82140; 82378; 82607; 82728; 82746; 82962; 83036; 83540; 83550; 83605; 84145; 84484; 85025; 85044; 86301; 86705; 86709; 86803; 87077; 87186; 87340; 87426; 93005; 93970; 99291; A6261; C9113; J0696; J1170; J1580; J1650; J1815; J2270; J2405; J2543; J3480; J7030; J7060; Q9967